=== PATIENT | female | born 1945 | race Caucasian/White ===

== ENCOUNTER 2021-06-17 11:08 | Emergency (ER) | payer OTHER ==
[2021-06-17] MEDS ORDERED: ACETAMINOPHEN 325 MG TABLET ONE (12:03)
[2021-06-17] MEDS ORDERED: LIDOCAINE 1% MPF 5 ML VIAL ONE (12:03)
--- NOTE | 2021-06-17 12:25 | RAD REPORT ---
EXAM DESCRIPTION: CT - CTHCSPWOC - 06/17/2021 12:04 pm CLINICAL HISTORY: head injury, fall, head and neck pain COMPARISON: No comparisons TECHNIQUE: Axial 5 mm thick images of the head were obtained. Axial 2 mm thick images of the cervic al spine were obtained with sagittal and coronal reconstruction images generated and reviewed. All CT scans are performed using dose optimization technique as appropriate and may include automated exposure control or mA/KV adjustment according to patient size. FINDINGS: No intracranial hemorrhage, mass, edema or acute intracranial finding. No suspicion for ac mechoopda infarction. Mild for age atrophy and chronic ischemic changes. Ventricles are in proportion. No e xtra-axial fluid collections. Mastoid air cells and paranasal sinuses are clear. No globe or orbit ab normality seen. Moderate-size left parietal scalp hematoma is present. Underlying bone is intact. Cervical bodies are normal in height. No fracture or acute cervical spine finding peer reversal of th e usual cervical lordosis at C4-5. C4-5 through C7-T1 disc space narrowing seen with endplate spurrin g. Facet degenerative change and uncovertebral hypertrophy changes are present. Bony foraminal encroa chment present on the right at C3-4 with mild foraminal bilateral encroachment C4-5. Moderate foramin al stenosis C5-6 and C6-7. Canal is stenotic at C5-6. Central canal detail is inherently limited. No paraspinal mass or hematoma. IMPRESSION: Mildly large left parietal scalp hematoma with underlying bone intact. No acute intracra nial finding. Advanced cervical spine degenerative change as detailed. No acute findings seen.
--- NOTE | 2021-06-17 14:25 | ER ---
Nurse's Notes [facility] Name: Viviane Couch Age: 75 yrs Sex: Female : 1945 Arrival Date: 06/17/2021 Time: 11:09 Bed 25 Private MD: Chicho Whitman T Diagnosis: Laceration without foreign body of scalp Presentation: 06/17 11:23 Chief complaint: Patient states: i dont know what hit first. i do feel queazy at my tw2 stomach but i do that often. i didn't pass out but my head just hurts. Spouse and/or significant other states: she was climbing on a kitchen chair reaching up and the chair slipped. she fell off a chair and hit a laminate floor. i couldn't see any corner. i didn't see it happen. i heard her holler. there was no blood on the floor. Coronavirus screen: At this time, the client does not indicate any symptoms associated with coronavirus-19. Ebola Screen: Patient denies travel to an Ebola-affected area in the 21 days before illness onset. Initial Sepsis Screen: Does the patient meet any 2 criteria? No. Patient's initial sepsis screen is negative. Does the patient have a suspected source of infection? No. Patient's initial sepsis screen is negative. Risk Assessment: Do you want to hurt yourself or someone else? Patient reports no desire to harm self or others. Onset of symptoms was June 17, 2021. 11:23 Method Of Arrival: Ambulatory tw2 11:23 Acuity: EDEL 3 tw2 11:25 Care prior to arrival: towel used for compression. Mechanism of Injury: Fall out of tw2 chair. Trauma event details: Injury occurred in the [facility]. Triage Assessment: 11:25 General: Appears uncomfortable, Behavior is drowsy. Pain: Complains of pain in head. tw2 Neuro: Level of Consciousness is awake, obeys commands, pt appears drowsy and when asked why she is closing her eyes pt states " i just feel better if i close my eyes". Trauma Activation: Alert Physician: ED Physician; Name: ; Notified At: ; Arrived At: Physician: General Surgeon; Name: ; Notified At: ; Arrived At: Physician: Radiology; Name: ; Notified At: ; Arrived At: Physician: Respiratory; Name: ; Notified At: ; Arrived At: Physician: Lab; Name: ; Notified At: ; Arrived At: Historical: - Allergies: 11:27 No Known Allergies; tw2 - Home Meds: 11:37 "unknown" [Active]; tw2 - PMHx: 11:37 Hypothyroidism; tw2 - Immunization history:: Adult Immunizations. - Social history:: Smoking status: . - Immunization history: Last tetanus immunization: unknown. Screenin:34 Abuse screen: Denies threats or abuse. Denies injuries from another. Nutritional ab2 screening: No deficits noted. Tuberculosis screening: No symptoms or risk factors identified. Fall Risk None identified. 12:22 The patient has not been NPO before screening. The patient is alert, able to follow eo2 commands. The patient does not exhibit slurred or garbled speech The patient is not exhibiting difficulty speaking. The patient does not exhibit difficulty understanding words. The patient is able to swallow own secretions with no drooling or need for suction. Patient tolerated one teaspoon of water. No drooling, immediate coughing, gurgling, or clearing of the throat was noted. The patient tolerated 90mL of water. No drooling, immediate coughing, gurgling, or clearing of the throat was noted. The patient passed the bedside swallow screening. Oral medications may be given as ordered. Contact Physician for further diet orders. Primary Survey: 11:35 NO uncontrolled hemorrhage observed. Breathing/Chest: Respiratory pattern: regular, ab2 Respiratory effort: spontaneous, unlabored, Breath sounds: clear, Chest inspection: symmetrical rise and fall of the chest. Circulation: Cardiac rhythm: Pulses: palpable right radial artery and left radial artery. Disability Alert. Exposure/Environment: There is no evidence of uncontrolled external bleeding. No obvious injuries are noted at this time. A warming method has been applied: A warm blanket has been provided to the patient. 11:36 Reassessment Breathing/Chest Respiratory pattern Regular Circulation Pulses Palpable ab2 Disability Alert. Assessment: 11:33 General: Appears in no apparent distress. comfortable, Behavior is calm, cooperative, ab2 appropriate for age. Pain: Denies pain. Neuro: Level of Consciousness is awake, alert, obeys commands, Oriented to person, place, time, situation, Appropriate for age Candy Polisher are equal bilaterally Moves all extremities. Gait is steady, Speech is normal. Cardiovascular: No deficits noted. Denies chest pain, shortness of breath, Heart tones S1 S2 present Patient's skin is warm and dry. Respiratory: No deficits noted. Airway is patent Respiratory effort is even, unlabored, Respiratory pattern is regular, symmetrical, Breath sounds are clear. GI: No deficits noted. No signs and/or symptoms were reported involving the gastrointestinal system. Abdomen is round non-distended, Bowel sounds present X 4 quads. : No deficits noted. No signs and/or symptoms were reported regarding the genitourinary system. EENT: No deficits noted. No signs and/or symptoms were reported regarding the EENT system. Derm: Skin is intact, is healthy with good turgor, Skin is dry, Skin is pink, warm \\T\\ dry. Wound noted left side of the back of head. Musculoskeletal: No deficits noted. No signs and/or symptoms reported regarding the musculoskeletal system. Injury Description: Laceration is clean, not bleeding. 14:30 Reassessment: 3 stables to lac on left occipital scalp. eo2 Vital Signs: 11:23 BP 159 / 107; Pulse 91; Resp 17; Temp 97.9(TE); Pulse Ox 100% on R/A; Weight 74.84 kg tw2 (R); Pain 4/10; 12:21 BP 99 / 89; Pulse 84; Resp 17; Pulse Ox 99% ; Pain 2/10; eo2 13:00 BP 139 / 79; Pulse 78; Resp 15; Pulse Ox 97% ; eo2 14:00 BP 147 / 85; Pulse 83; Resp 15; Pulse Ox 99% ; Pain 0/10; eo2 [place] Coma Score: 11:35 Eye Response: spontaneous(4). Verbal Response: oriented(5). Motor Response: obeys ab2 commands(6). Total: 15. Trauma Score (Adult): 11:35 Eye Response: spontaneous(1); Verbal Response: oriented(1); Motor Response: obeys ab2 commands(2); Systolic BP: > 89 mm Hg(4); Respiratory Rate: 10 to 29 per min(4); [place] Score: 15; Trauma Score: 12 ED Course: 11:09 Patient arrived in ED. as 11:09 Chicho Whitman MD is Private Physician. as 11:27 Triage completed. tw2 11:29 Kofi Rebollar PA is PHCP. [facility] 11:29 Yovanny Fuller MD is Attending Physician. jmm 11:34 Arm band placed on. tw2 11:35 Patient maintains SpO2 saturation greater than 95% on room air. ab2 11:36 Patient has correct armband on for positive identification. Bed in low position. Call ab2 light in reach. Side rails up X2. 11:36 No provider procedures requiring assistance completed. ab2 11:36 Thermoregulation: warm blanket given to patient. ab2 11:36 Wound care: to laceration was cleaned with soap and water. ab2 12:03 CT Head C Spine In Process Unspecified. EDMS 12:09 Mar Denise, RN is Primary Nurse. eo2 13:00 Pulse ox on. NIBP on. Door closed. Noise minimized. Warm blanket given. eo2 14:24 Chicho Whitman MD is Referral Physician. [facility] 14:46 Patient did not have IV access during this emergency room visit. eo2 Administered Medications: 12:27 Drug: Acetaminophen 650 mg Route: PO; eo2 13:30 Follow up: Response: No adverse reaction; Pain is decreased eo2 14:00 Drug: Lidocaine (1 %) 10 ml {Note: administered by Kofi GRAVES.} Volume: 5 ml; Route: eo2 Infiltration; 14:32 Follow up: Response: No adverse reaction eo2 Intake: 12:09 PO: 20ml; Total: 20ml. eo2 Outcome: 14:25 Discharge ordered by MD. [facility] 14:46 Discharged to home ambulatory, with family. eo2 14:46 Condition: stable 14:46 Discharge instructions given to patient, Instructed on discharge instructions, follow up and referral plans. Demonstrated understanding of instructions, follow-up care. 14:47 Patient's length of stay in the Emergency Department was greater than 2 hours. ED eo2 flowPatient's length of stay extended due to 14:48 Patient left the ED. eo2 Signatures: Dispatcher [employer] EDMS Kofi Rebollar PA PA jmm Martinez, Amelia as Wise, Tara, RN RN tw2 Mar Denise, PERRY RN eo2 Elvin Easley ab2 Corrections: (The following items were deleted from the chart) 11:32 11:23 Chief complaint: Patient states: i dont know what hit first. i do feel queazy at tw2 my stomach but i do that often Spouse and/or significant other states: she was cliimbing on a kitchen chair reaching up and the chair slipped. she fell off a chair and hit a laminate floor. i couldn't see any corner. i didn't see it happen. i heard her holler tw2
--- NOTE | 2021-06-17 14:25 | EDPHYS ---
Physician Documentation [facility] Name: Viviane Couch Age: 75 yrs Sex: Female : 1945 Arrival Date: 06/17/2021 Time: 11:09 Bed 25 Private MD: Chicho Whitman T ED Physician Yovanny Fuller HPI: 06/17 14:22 This 75 yrs old Female presents to ER via Ambulatory with complaints of Fall Injury, jmm Laceration To Head. 14:22 Details of fall: The patient fell from an upright position, Chair. Onset: The jmm symptoms/episode began/occurred acutely, just prior to arrival. Associated injuries: The patient sustained injury to the head. This is a 75-year-old female with history of hypothyroidism the presents emerged department with laceration of the left parietal scalp following a fall which occurred while she was standing on a chair and slipped.. Historical: - Allergies: 11:27 No Known Allergies; tw2 - Home Meds: 11:37 "unknown" [Active]; tw2 - PMHx: 11:37 Hypothyroidism; tw2 - Immunization history:: Adult Immunizations. - Social history:: Smoking status: . - Immunization history: Last tetanus immunization: unknown. ROS: 14:22 Constitutional: Negative for fever, chills, and weight loss, Cardiovascular: Negative jmm for chest pain, palpitations, and edema, Respiratory: Negative for shortness of breath, cough, wheezing, and pleuritic chest pain. 14:22 Skin: Positive for laceration(s). 14:22 Neuro: Positive for headache. 14:22 All other systems are negative. Exam: 14:22 Constitutional: This is a well developed, well nourished patient who is awake, alert, jmm and in no acute distress. 14:22 Eyes: EOMI, no conjunctival erythema appreciated ENT: Moist Mucus Membranes Neck: Trachea midline, Supple Chest/axilla: Normal chest wall appearance and motion. Cardiovascular: Regular rate and rhythm. No edema appreciated Respiratory: Normal respirations, no respiratory distress appreciated Abdomen/GI: Non distended, soft Back: Normal ROM 14:22 MS/ Extremity: Moves all extremities, no obvious deformities appreciated, no edema noted to the lower extremities Neuro: Awake and alert Psych: Behavior is normal, Mood is normal, Patient is cooperative and pleasant 14:22 Head/face: Noted is a laceration(s), that is linear, 3 cm(s). 14:22 Skin: injury, laceration(s), the wound is approximately 3 cm(s). Vital Signs: 11:23 BP 159 / 107; Pulse 91; Resp 17; Temp 97.9(TE); Pulse Ox 100% on R/A; Weight 74.84 kg tw2 (R); Pain 4/10; 12:21 BP 99 / 89; Pulse 84; Resp 17; Pulse Ox 99% ; Pain 2/10; eo2 13:00 BP 139 / 79; Pulse 78; Resp 15; Pulse Ox 97% ; eo2 14:00 BP 147 / 85; Pulse 83; Resp 15; Pulse Ox 99% ; Pain 0/10; eo2 [place] Coma Score: 11:35 Eye Response: spontaneous(4). Verbal Response: oriented(5). Motor Response: obeys ab2 commands(6). Total: 15. Trauma Score (Adult): 11:35 Eye Response: spontaneous(1); Verbal Response: oriented(1); Motor Response: obeys ab2 commands(2); Systolic BP: > 89 mm Hg(4); Respiratory Rate: 10 to 29 per min(4); [place] Score: 15; Trauma Score: 12 Laceration: 14:22 Wound Repair of 3cm ( 1.2in ) subcutaneous laceration to left side of the back of head. jmm Distal neuro/vascular/tendon intact. Anesthesia: Local anesthetic administered with 3 mls of 1% lidocaine. Wound prep: Simple cleansing by nurse. Skin closed with 3 1-0 [place] using staple gun. Patient tolerated well. MDM: 11:46 Patient medically screened. [facility] 14:22 Data reviewed: vital signs, nurses notes. Counseling: I had a detailed discussion with fernandez the patient and/or guardian regarding: the historical points, exam findings, and any diagnostic results supporting the discharge/admit diagnosis, the need for outpatient follow up, to return to the emergency department if symptoms worsen or persist or if there are any questions or concerns that arise at home. 06/17 11:49 Order name: CT Head C Spine; Complete Time: 12:29 [facility] Administered Medications: 12:27 Drug: Acetaminophen 650 mg Route: PO; eo2 13:30 Follow up: Response: No adverse reaction; Pain is decreased eo2 14:00 Drug: Lidocaine (1 %) 10 ml {Note: administered by Kofi GRAVES.} Volume: 5 ml; Route: eo2 Infiltration; 14:32 Follow up: Response: No adverse reaction eo2 Disposition: 17:41 Co-signature as Attending Physician, Yovanny Fuller MD I agree with the assessment and kdr plan of care. Disposition Summary: 06/17/21 14:25 Discharge Ordered Location: Home [facility] Condition: Stable jmm Diagnosis - Laceration without foreign body of scalp jm Followup: jmm - With: Chicho Whitman MD - When: 1 week - Reason: Recheck today's complaints, Continuance of care, Re-evaluation by your physician Discharge Instructions: - Discharge Summary Sheet jmm - Head Injury, Adult jmm - Facial Laceration [facility] Forms: - Medication Reconciliation Form [facility] - Thank You Letter jmm - Antibiotic Education jmm - Prescription Opioid Use [facility] Signatures: Dispatcher [employer] EDMS Yovanny Fuller MD MD kdr Mickail, Joel, PA PA m Johana Neff, RN RN tw2 Mar Denise, RN RN eo2
[2021-06-17 15:27] VITALS: TEMP 97.9
[2021-06-17 15:31] VITALS: BP 147/85; O2SAT 99
== END 2021-06-17 14:48 | disposition home or self-care (01) ==
LOC: ER 11:08
PROC: 0JQ00ZZ Repair Scalp Subcutaneous Tissue and Fascia, Open Approach (ICD-10-PCS; principal; 2021-06-17)
DX: S01.01XA Laceration without foreign body of scalp, initial encounter (principal); W07.XXXA Fall from chair, initial encounter
CPT/HCPCS: 70450; 72125; 99284

== ENCOUNTER 2021-07-10 15:11 | Emergency (ER) | payer OTHER ==
[2021-07-10] MEDS ORDERED: MORPHINE 2 MG/ML SYR ONE (16:27)
[2021-07-10] MEDS ORDERED: METHYLPREDNISOLONE 125 MG INJ ONE (16:27)
[2021-07-10] MEDS ORDERED: ONDANSETRON 4 MG (ODT) TAB ONE (16:28)
[2021-07-10] MEDS ORDERED: MORPHINE 4 MG/ML SYR ONE (16:28)
--- NOTE | 2021-07-10 16:34 | EDPHYS ---
Physician Documentation [facility] Name: Viviane Couch Age: 75 yrs Sex: Female : 1945 Arrival Date: 07/10/2021 Time: 15:12 Bed 12 Private MD: Chicho Whitman T ED Physician Katharine Barrow HPI: 07/10 16:30 This 75 yrs old Female presents to ER via Wheelchair with complaints of Arm Pain - ma2 swelling. 16:30 75-year-old female, history of chronic left shoulder pain and arthritis of the ma2 shoulder, she is seen orthopedic in the past, was given physical therapy. The patient also has left upper extremity lymphedema and swelling for years. Patient here because he got tired from hurting in the left arm, pain is been constant for the last 2 weeks, unchanged muscle of the left shoulder, there is no reported trauma. No fever or chill. Pain is similar to previous attack, patient takes ibuprofen for pain. They have a scheduled appointment with orthopedic in 1 week.. Historical: - Allergies: 15:26 No Known Allergies; vg1 - Home Meds: 15:26 Duloxetine [Active]; Unknown Blood pressure med [Active]; vg1 - PMHx: 15:26 Hypothyroidism; Lymphedema; Arthritis; Depressive disorder; Hypertensive disorder; vg1 - Immunization history:: Client reports receiving the 2nd dose of the Covid vaccine. - Social history:: Smoking status: Patient denies any tobacco usage or history of. - Family history:: not pertinent. ROS: 16:30 Constitutional: Negative for fever, chills, and weight loss. ma2 16:30 All other systems are negative. Exam: 16:30 Constitutional: This is a well developed, well nourished patient who is awake, alert, ma2 and in no acute distress. Head/Face: Normocephalic, atraumatic. Eyes: Pupils equal round and reactive to light, extra-ocular motions intact. Lids and lashes normal. Conjunctiva and sclera are non-icteric and not injected. Cornea within normal limits. Periorbital areas with no swelling, redness, or edema. ENT: Nares patent. No nasal discharge, no septal abnormalities noted. Tympanic membranes are normal and external auditory canals are clear. Oropharynx with no redness, swelling, or masses, exudates, or evidence of obstruction, uvula midline. Mucous membranes moist. Neck: Trachea midline, no thyromegaly or masses palpated, and no cervical lymphadenopathy. Supple, full range of motion without nuchal rigidity, or vertebral point tenderness. No Meningismus. Chest/axilla: Normal chest wall appearance and motion. Nontender with no deformity. No lesions are appreciated. Cardiovascular: Regular rate and rhythm with a normal S1 and S2. No gallops, murmurs, or rubs. Normal PMI, no JVD. No pulse deficits. Respiratory: Lungs have equal breath sounds bilaterally, clear to auscultation and percussion. No rales, rhonchi or wheezes noted. No increased work of breathing, no retractions or nasal flaring. Abdomen/GI: Soft, non-tender, with normal bowel sounds. No distension or tympany. No guarding or rebound. No evidence of tenderness throughout. Back: No spinal tenderness. No costovertebral tenderness. Full range of motion. Skin: Warm, dry with normal turgor. Normal color with no rashes, no lesions, and no evidence of cellulitis. MS/ Extremity: There is left upper extremity diffuse generalized edema consistent with lymphedema, mild, there is limited range of motion of left shoulder due to pain, however there is no effusion of left shoulder, no warmth or point tenderness. No bony tenderness. Otherwise rest, pulses intact at left radial and ulnar pulses and equal bilaterally 2+. Overhead movement is intact. Sensation is intact all over. On pulses equal, no cyanosis. Neurovascular intact. Full, normal range of motion. Neuro: Awake and alert, GCS 15, oriented to person, place, time, and situation. Cranial nerves II-XII grossly intact. Motor strength 5/5 in all extremities. Sensory grossly intact. Cerebellar exam normal. Normal gait. 16:30 MS/ Extremity: Pulses equal, no cyanosis. Neurovascular intact. Full, normal range ma2 of motion. Vital Signs: 15:24 BP 134 / 70; Pulse 87; Resp 17; Temp 98.6; Pulse Ox 98% ; Weight 74.84 kg; Height 5 ft. vg1 3 in. (160.02 cm); Pain 10/10; 16:42 BP 137 / 73; Pulse 84; Resp 18; Pulse Ox 99% on R/A; ss7 15:24 Body Mass Index 29.23 (74.84 kg, 160.02 cm) vg1 MDM: 15:42 Patient medically screened. ma2 16:30 Differential diagnosis: contusion, abrasion, tendonitis. Differential diagnosis:. Data ma2 reviewed: vital signs. Counseling: I had a detailed discussion with the patient and/or guardian regarding: the historical points, exam findings, and any diagnostic results supporting the discharge/admit diagnosis, the presence of at least one elevated blood pressure reading (>120/80) during this emergency department visit, the need for outpatient follow up. Response to treatment: the patient's symptoms have markedly improved after treatment. Administered Medications: 16:41 Drug: SOLU-Medrol (methylPREDNISolone sodium succinate) 125 mg Route: IM; Site: ss7 Ventrogluteal LEFT; 16:46 Follow up: Response: Medication administered at discharge. ss7 16:41 Drug: Zofran (Ondansetron) 4 mg Route: PO; ss7 16:46 Follow up: Response: Medication administered at discharge. ss7 16:42 Drug: morphine 10 mg Route: IM; Site: Ventrogluteal RIGHT; ss7 16:46 Follow up: Response: Medication administered at discharge. ss7 Disposition Summary: 07/10/21 16:34 Discharge Ordered Location: Home ma2 Condition: Stable ma2 Diagnosis - Pain in left shoulder ma2 Followup: ma2 - With: Aramis Galvan MD - When: Tomorrow - Reason: If symptoms return, Continuance of care Discharge Instructions: - Discharge Summary Sheet ma2 - Joint Pain ma2 Forms: - Medication Reconciliation Form ma2 - Thank You Letter ma2 - Antibiotic Education ma2 - Prescription Opioid Use ma2 Prescriptions: - KETOROLAC 10 mg - take 10 milligram by ORAL route 3 times per day; 500 milligram; Refills: 0, ma2 Product Selection Permitted - Diclofenac Sodium 75 mg Oral Tablet Sustained Release - take 1 tablet by ORAL route 2 times per day; 30 tablet; Refills: 0, Product ma2 Selection Permitted - Nystatin-Triamcinolone 100,000-0.1 unit/g-% Topical Cream - apply 1 application by TOPICAL route 2 times per day; 1 tube; Refills: 0, ma2 Product Selection Permitted - Medrol (Shreyas) 4 mg Oral Tablets, Dose Pack - take 1 tablet by ORAL route as directed - follow package instructions; 1 ma2 packet; Refills: 0, Product Selection Permitted Signatures: Katharine Barrow MD MD ma2 Grazyna Randle RN RN vg1 Farideh Gonzalez RN RN ss7 Corrections: (The following items were deleted from the chart) 15:28 15:26 Home Meds: "unknown"; vg1 vg1 16:33 16:30 Constitutional: This is a well developed, well nourished patient who is awake, ma2 alert, and in no acute distress. Head/Face: Normocephalic, atraumatic. Eyes: Pupils equal round and reactive to light, extra-ocular motions intact. Lids and lashes normal. Conjunctiva and sclera are non-icteric and not injected. Cornea within normal limits. Periorbital areas with no swelling, redness, or edema. ENT: Nares patent. No nasal discharge, no septal abnormalities noted. Tympanic membranes are normal and external auditory canals are clear. Oropharynx with no redness, swelling, or masses, exudates, or evidence of obstruction, uvula midline. Mucous membranes moist. Neck: Trachea midline, no thyromegaly or masses palpated, and no cervical lymphadenopathy. Supple, full range of motion without nuchal rigidity, or vertebral point tenderness. No Meningismus. Chest/axilla: Normal chest wall appearance and motion. Nontender with no deformity. No lesions are appreciated. Cardiovascular: Regular rate and rhythm with a normal S1 and S2. No gallops, murmurs, or rubs. Normal PMI, no JVD. No pulse deficits. Respiratory: Lungs have equal breath sounds bilaterally, clear to auscultation and percussion. No rales, rhonchi or wheezes noted. No increased work of breathing, no retractions or nasal flaring. Abdomen/GI: Soft, non-tender, with normal bowel sounds. No distension or tympany. No guarding or rebound. No evidence of tenderness throughout. Back: No spinal tenderness. No costovertebral tenderness. Full range of motion. Skin: Warm, dry with normal turgor. Normal color with no rashes, no lesions, and no evidence of cellulitis. MS/ Extremity: Pulses equal, no cyanosis. Neurovascular intact. Full, normal range of motion. Neuro: Awake and alert, GCS 15, oriented to person, place, time, and situation. Cranial nerves II-XII grossly intact. Motor strength 5/5 in all extremities. Sensory grossly intact. Cerebellar exam normal. Normal gait. ma2
--- NOTE | 2021-07-10 16:34 | ER ---
Nurse's Notes [facility] Name: Viviane Couch Age: 75 yrs Sex: Female : 1945 Arrival Date: 07/10/2021 Time: 15:12 Bed 12 Private MD: Chicho Whitman T Diagnosis: Pain in left shoulder Presentation: 07/10 15:24 Chief complaint: Patient states: Left arm pain for 2 weeks; states has lymphedema and vg1 arthritis in Left shoulder. States 'pain is unbearable, I just cant deal with it anymore'. Coronavirus screen: Vaccine status: Patient reports receiving the 2nd dose of the covid vaccine. Client denies travel out of the [place] in the last 14 days. Ebola Screen: Patient negative for fever greater than or equal to 101.5 degrees Fahrenheit, and additional compatible Ebola Virus Disease symptoms. Initial Sepsis Screen: Does the patient meet any 2 criteria? No. Patient's initial sepsis screen is negative. Does the patient have a suspected source of infection? No. Patient's initial sepsis screen is negative. Risk Assessment: Do you want to hurt yourself or someone else? Patient reports no desire to harm self or others. Onset of symptoms was June 26, 2021. 15:24 Method Of Arrival: Wheelchair vg1 15:24 Acuity: EDEL 4 vg1 Triage Assessment: 15:26 General: Appears in no apparent distress. uncomfortable, Behavior is calm, cooperative. vg1 Pain: Complains of pain in left arm. Historical: - Allergies: 15:26 No Known Allergies; vg1 - Home Meds: 15:26 Duloxetine [Active]; Unknown Blood pressure med [Active]; vg1 - PMHx: 15:26 Hypothyroidism; Lymphedema; Arthritis; Depressive disorder; Hypertensive disorder; vg1 - Immunization history:: Client reports receiving the 2nd dose of the Covid vaccine. - Social history:: Smoking status: Patient denies any tobacco usage or history of. - Family history:: not pertinent. Screenin:28 Abuse screen: Denies threats or abuse. Nutritional screening: No deficits noted. ss7 Tuberculosis screening: No symptoms or risk factors identified. Fall Risk Secondary diagnosis (15 points) impaired mobility. Assessment: 16:27 General: Appears distressed, uncomfortable, Behavior is cooperative, appropriate for ss7 age, anxious. Pain: Complains of pain in left arm and shoulder. Neuro: No deficits noted. Cardiovascular: Heart tones S1 S2. Respiratory: Breath sounds are clear bilaterally. Musculoskeletal: Swelling pmh of lymphedema Tenderness present in left arm Reports pain in left arm. Vital Signs: 15:24 BP 134 / 70; Pulse 87; Resp 17; Temp 98.6; Pulse Ox 98% ; Weight 74.84 kg; Height 5 ft. vg1 3 in. (160.02 cm); Pain 10/10; 16:42 BP 137 / 73; Pulse 84; Resp 18; Pulse Ox 99% on R/A; ss7 15:24 Body Mass Index 29.23 (74.84 kg, 160.02 cm) vg1 ED Course: 15:12 Patient arrived in ED. as 15:13 Chicho Whitman MD is Private Physician. as 15:26 Triage completed. vg1 15:26 Arm band placed on. vg1 15:29 Farideh Gonzalez RN is Primary Nurse. ss7 15:35 Katharine Barrow MD is Attending Physician. ma2 16:28 Patient has correct armband on for positive identification. ss7 16:28 Bed in low position. Call light in reach. Adult w/ patient. ss7 16:28 No provider procedures requiring assistance completed. Patient did not have IV access [facility] during this emergency room visit. 16:34 Aramis Galvan MD is Referral Physician. ma2 Administered Medications: 16:41 Drug: SOLU-Medrol (methylPREDNISolone sodium succinate) 125 mg Route: IM; Site: 7 Ventrogluteal LEFT; 16:46 Follow up: Response: Medication administered at discharge. 7 16:41 Drug: Zofran (Ondansetron) 4 mg Route: PO; 7 16:46 Follow up: Response: Medication administered at discharge. 7 16:42 Drug: morphine 10 mg Route: IM; Site: Ventrogluteal RIGHT; ss7 16:46 Follow up: Response: Medication administered at discharge. 7 Outcome: 16:34 Discharge ordered by . ma2 16:46 Discharged to home via wheelchair, with family. 7 16:46 Condition: stable 16:46 Discharge instructions given to patient, family, Instructed on discharge instructions, follow up and referral plans. Demonstrated understanding of instructions, follow-up care. 16:56 Patient left the ED. ss7 Signatures: Maribeth Shepard Mohammad, MD MD ma2 Grazyna Randle RN RN vg1 Farideh Gonzalez RN RN ss7 Corrections: (The following items were deleted from the chart) 15:28 15:26 Home Meds: "unknown"; vg1 vg1
[2021-07-10 17:07] VITALS: TEMP 98.6
[2021-07-10 17:09] VITALS: BP 137/73; O2SAT 99
== END 2021-07-10 16:56 | disposition home or self-care (01) ==
LOC: ER 15:11
DX: M25.512 Pain in left shoulder (principal); E03.9 Hypothyroidism, unspecified; F32.A Depression, unspecified; I10 Essential (primary) hypertension
CPT/HCPCS: 96372; 99283; J2270; J2930